=== PATIENT | female | born 1990 | race Caucasian/White ===

== ENCOUNTER 2018-10-31 18:55 | Emergency (ER) | payer OTHER ==
[~2018-10-31] VITALS: Ht 157.5 cm; Wt 51.6 kg
[2018-10-31 18:59] VITALS: BP 125/73; PULSE 89; RESP 19; Ht 157.5 cm; Wt 51.6 kg
[2018-10-31] MEDS ORDERED: PHENAZOPYRIDINE 100 MG TAB PO ONE (20:30)
[2018-10-31] MEDS ORDERED: NITR-58 PO (20:37)
[2018-10-31] MEDS ORDERED: PHEN-538 PO (20:37)
--- NOTE | 2018-10-31 20:41 | ERD ---
ER Documentation Chief Complaint Chief Complaint DX W/ UTI 1 WEEK AGO, FINISHED ANTIBIOTICS, STILL C/O PAIN AND BURNING HPI Patient is a 27-year-old female with no medical problems who presents saying that she is "suffering from a UTI". She said that she was supposed to be on antibiotics and was taking Keflex but missed a few doses. She takes control pills as well. She tried Azo. She feels like she still has "inflammation" and feels burning when she urinates. She denies fevers. Upon review of old medical records this is the patient's first visit to the emergency department. She does have a primary doctor. ROS All systems reviewed and are negative except as per history of present illness. Medications Home Meds Active Scripts Phenazopyridine Hcl* (Pyridium*) 200 Mg Tab, 200 MG PO TID PRN for URINARY PAIN, #6 TAB Prov:LIDYA VELÁZQUEZ MD 10/31/18 Nitrofurantoin Monohyd Macrocr* (Macrobid*) 100 Mg Capsr, 100 MG PO BID for 14 Days, CAP Prov:LIDYA VELÁZQUEZ MD 10/31/18 Allergies Allergies: Coded Allergies: No Known Drug Allergies (Verified Allergy, Unknown, 10/31/18) PMhx/Soc Medical and Surgical Hx: pt denies Medical Hx, pt denies Surgical Hx Hx Alcohol Use: No Hx Substance Use: No Hx Tobacco Use: No Smoking Status: Never smoker FmHx Family History: No diabetes Physical Exam Vitals Vital Signs Date Temp Pulse Resp B/P (MAP) Pulse Ox O2 O2 Flow FiO2 Time Delivery Rate 10/31/18 98.1 89 19 125/73 96 18:59 (90) Physical Exam Const: No acute distress Head: Atraumatic Eyes: Normal Conjunctiva ENT: Normal External Ears, Nose and Mouth. Neck: Full range of motion. No meningismus. Resp: Clear to auscultation bilaterally Cardio: Regular rate and rhythm, no murmurs Abd: Soft, non tender, non distended. Normal bowel sounds Skin: No petechiae or rashes Back: No midline or flank tenderness Ext: No cyanosis, or edema Neur: Awake and alert Psych: Normal Mood and Affect Results 24 hrs Laboratory Tests Test 10/31/18 20:19 Bedside Urine pH (LAB) 7.5 Bedside Urine Protein (LAB) 2+ Bedside Urine Glucose (UA) Negative Bedside Urine Ketones (LAB) 1+ Bedside Urine Blood Trace-intact Bedside Urine Nitrite (LAB) Negative Bedside Urine Leukocyte Esterase (L 1+ POC Beta HCG, Qualitative NEGATIVE Current Medications Medications Dose Sig/Yony Start Time Status Last (Trade) Ordered Route PRN Stop Time Admin Dose Reason Admin 200 mg ONCE ONCE 10/31/18 DC 10/31/18 Phenazopyridi PO 20:30 20:21 ne HCl 10/31/18 20:31 (Pyridium) Procedures/MDM Urine dip shows infection. test is negative. Patient is a 27-year-old female presents with acute cystitis. I doubt sepsis or pyonephritis. The patient will be given Macrobid for 1 week course and she was instructed to stop Keflex. She will be given Pyridium for symptom medic relief. She should follow-up with her primary doctor within 1 week. She can return for any worsening symptoms. Departure Diagnosis: Primary Impression: Cystitis Condition: Fair Patient Instructions: Cystitis Referrals: Your doctor Additional Instructions: Call your primary care doctor TOMORROW for an appointment during the next 1 WEEK.Tell the statistical secretary that you were referred from this facility.See the doctor sooner or return here if your condition worsens before your appointment time. LIDYA VELÁZQUEZ MD Oct 31, 2018 20:41
== END 2018-10-31 21:01 | disposition home or self-care (01) ==
LOC: E/R 18:55
DX: N30.90 Cystitis, unspecified without hematuria (principal)
CPT/HCPCS: 81003; 81025; Z7610; 99283